=== PATIENT | male | born 1970 | race American Indian/Alaskan Native ===

== ENCOUNTER 2018-06-22 15:39 | Emergency (ER) | payer BC ==
[2018-06-22 15:52] VITALS: BP 161/93; PULSE 89; RESP 18; TEMP 98.7; O2SAT 99
--- NOTE | 2018-06-22 16:20 | C.PDOC ---
History Of Present Illness 47 y/o male pt presents to the ER c/o sore on the upper molar for x2 weeks. Pt reports she has dentures. Pt denies fever, chills and loss of appetite. Time Seen by Provider: 06/22/18 15:57 Chief Complaint (Nursing): Dental Pain History Per: Patient History/Exam Limitations: no limitations Onset/Duration Of Symptoms: Days (x2 weeks) Current Symptoms Are (Timing): Still Present Past Medical History Reviewed: Historical Data, Nursing Documentation, Vital Signs Vital Signs: Last Vital Signs Temp 98.7 F 06/22/18 15:49 Pulse 89 06/22/18 15:49 Resp 18 06/22/18 15:49 BP 161/93 H 06/22/18 15:49 Pulse Ox 99 06/22/18 15:49 - Medical History PMH: Seizures Family History: States: No Known Family Hx - Social History Hx Alcohol Use: Yes Hx Substance Use: No - Immunization History Hx Tetanus Toxoid Vaccination: No Hx Influenza Vaccination: No Hx Pneumococcal Vaccination: No Review Of Systems Except As Marked, All Systems Reviewed And Found Negative. Constitutional: Negative for: Fever, Chills, Other (loss of appetite ) ENT: Positive for: Other (sore on upper molar ) Physical Exam - Physical Exam Appears: Non-toxic, No Acute Distress Skin: Warm, Dry Head: Normacephalic Eye(s): bilateral: EOMI Oral Mucosa: Moist Tongue: Normal Appearing Lips: Normal Appearing Teeth: Dentures (bottom ) Gingiva: Normal Appearing, No Erythema, No Ulceration, No Swelling Throat: Normal, No Erythema Cardiovascular: Rhythm Regular Respiratory: Normal Breath Sounds Neurological/Psych: Oriented x3, Normal Speech, Normal Cognition ED Course And Treatment O2 Sat by Pulse Oximetry: 99 (RA) Pulse Ox Interpretation: Normal Progress Note: Patient was instructed to f/u with dentist in 1-2 days Disposition - Disposition Disposition: HOME/ ROUTINE Disposition Time: 16:13 Condition: STABLE Additional Instructions: Follow up with PMD and Dentist within 1-2 days. Return to ED if feel worse. Prescriptions: Chlorhexidine 0.12% [Peridex] 15 ml PO BID #1 bottle Instructions: Gingivitis (DC) Forms: [employer] (Somali) - Clinical Impression Clinical Impression: Gingivitis - PA / ASSIGNMENT MANAGER / Resident Statement MD/DO has reviewed & agrees with the documentation as recorded. - Scribe Statement The provider has reviewed the documentation as recorded by the Scribe Turner Do All medical record entries made by the Scribe were at my direction and personally dictated by me. I have reviewed the chart and agree that the record accurately reflects my personal performance of the history, physical exam, medical decision making, and the department course for this patient. I have also personally directed, reviewed, and agree with the discharge instructions and disposition.
== END 2018-06-22 16:27 | disposition home or self-care (01) ==
LOC: C.ER 15:39
DX: K05.10 Chronic gingivitis, plaque induced (principal)

== ENCOUNTER 2018-07-09 08:35 | Outpatient (CLI) | payer BC | END 2018-07-09 08:36 | disposition home or self-care (01) | LOC: C.EKG 08:35 | DX: E66.01 Morbid (severe) obesity due to excess calories (principal) ==

== ENCOUNTER 2018-07-23 13:44 | Outpatient (CLI) | payer BC | END 2018-07-23 13:45 | disposition home or self-care (01) | LOC: C.DIABED 13:44 | DX: E66.9 Obesity, unspecified (principal) ==

== ENCOUNTER 2018-08-06 14:22 | Outpatient (CLI) | payer BC | END 2018-08-06 14:23 | disposition home or self-care (01) | LOC: C.DIABED 14:22 | DX: E66.9 Obesity, unspecified (principal) ==